=== PATIENT | female | born 1970 | race Caucasian/White ===

== ENCOUNTER 2022-12-31 18:40 | Inpatient (IN) | payer MEDICARE, MEDICAID ==
[~2022-12-31] VITALS: Ht 157.5 cm; Wt 81.8 kg
[2022-12-31] MEDS ORDERED: LORazepam 2 mg/ml vial IV ONE (18:55)
[2022-12-31] MEDS ORDERED: ipratropium 0.5 MG/2.5ML nebule IH ONE (19:05)
[2022-12-31] MEDS ORDERED: albuterol 2.5 MG/3 ML nebule CONTNEB PRN (19:05)
[2022-12-31 19:14] LABS: BASOPHILS # (AUTO) 0.1 X10'3 (0-0.2); BASOPHILS % (AUTO) 0.4 % (0-1); EOSINOPHILS # (AUTO) 0.4 X10'3 (0-0.9); HEMATOCRIT 39.6 % (35.0-45.0); HEMOGLOBIN 12.9 g/dl (12.0-16.0); LYMPHOCYTES # (AUTO) 8.5 X10'3 (1.1-4.8); LYMPHOCYTES % (AUTO) 42.2 % (21-51); MEAN CORPUSCULAR HEMOGLOBIN 27.7 PG (27.0-31.0); MEAN CORPUSCULAR HGB CONC 32.6 g/dL (33.0-36.5); MEAN CORPUSCULAR VOLUME 84.9 FL (78-98); MEAN PLATELET VOLUME 7.3 FL (7.4-10.4); MONOCYTES # (AUTO) 1.3 X10'3 (0-0.9); MONOCYTES % (AUTO) 6.3 % (2-12); NEUTROPHILS # (AUTO) 9.8 X10'3 (1.8-7.7); NEUTROPHILS % (AUTO) 49.1 % (42-75); PLATELET COUNT 365 X10'3 (140-440); RED BLOOD COUNT 4.67 X10'6 (4.20-5.60); RED CELL DISTRIBUTION WIDTH 15.3 % (11.5-14.5); WHITE BLOOD COUNT 20.1 X10'3 (4.5-11.0)
[2022-12-31 19:15] LABS: ALANINE AMINOTRANSFERASE 45 U/L (12-78); ALBUMIN 3.8 G/DL (3.4-5.0); ALKALINE PHOSPHATASE 188 IU/L (46-116); ANION GAP 10 (8-16); ASPARTATE AMINO TRANSFERASE 53 U/L (10-37); BILIRUBIN,TOTAL 0.3 MG/DL (0.1-1.0); BLOOD UREA NITROGEN 12 MG/DL (7-18); BUN/CREATININE RATIO 11.2 (10.0-20.0); CALCIUM 8.8 MG/DL (8.5-10.1); CHLORIDE 99 MMOL/L (99-107); CREATININE 1.07 MG/DL (0.40-0.90); GLUCOSE 216 MG/DL (70-104); POTASSIUM 3.2 MMOL/L (3.5-5.1); SODIUM 136 MMOL/L (135-145); TOTAL CARBON DIOXIDE 26.9 MMOL/L (24-32); TOTAL PROTEIN 7.8 G/DL (6.4-8.2); eGFR 53 ML/MIN
--- NOTE | 2022-12-31 19:25 | NUR ---
Adolfo Mayers home delivery driver. Will pick pt up when she is ready to go home
[2022-12-31] MEDS ORDERED: normal saline 1000ML IV soln IVB ONE (19:35)
[2022-12-31] MEDS ORDERED: methylPREDNISolone sod succ 125mg/2ml vial IV ONE (19:35)
[2022-12-31] MEDS ORDERED: CefTRIAXone 2gm/D5W 50ml BAG 50 ML IV ONE (19:35)
[2022-12-31] MEDS ORDERED: azithromycin/NS 500mg/250ml 250 ML IV ONE (19:35)
[2022-12-31 20:17] LABS: MAGNESIUM 1.8 MG/DL (1.5-2.4)
[2022-12-31 21:52] LABS: APTT 26 SECONDS (22-32); D-DIMER 0.59 MG/L FEU (0-0.50)
[2022-12-31 22:08] LABS: URINE HCG NEGATIVE (NEG)
[2022-12-31 22:27] LABS: CLARITY,URINE CLEAR (Clear); COLOR,URINE STRAW (Yellow); GLUCOSE, URINE 250 mg/dl (Neg); KETONES,URINE NEGATIVE (Neg); LEUKOCYTE ESTERASE ,URINE NEGATIVE (Neg); NITRITES, URINE NEGATIVE (Neg); OCCULT BLOOD,URINE LARGE (Neg); PH,URINE 5.5 (4.8-8.0); PROTEIN,URINE 30 mg/dl (Neg); UROBILINOGEN,URINE 0.2 E.U/dL (0.2-1.0)
[2022-12-31 22:28] LABS: UA COLLECTION TYPE CLN CATCH MIDSTREAM
--- NOTE | 2022-12-31 22:37 | NUR ---
Director of patient's care facility called for an update. Pt is not conserved, but would like to be contacted about any major decisions to ensure patient understands. Pt is hard of hearing, but can read and sign.
[2022-12-31 22:46] LABS: BACTERIA,URINE NONE SEEN /HPF (Neg); HYALINE CASTS 0-3 /LPF (NEGATIVE); SQUAMOUS EPITHELIAL CELL,UR FEW /LPF (FEW); WBC,URINE 0-4 /HPF (0-4)
[2022-12-31] MEDS ORDERED: albuterol 2.5 MG/3 ML nebule NEB PRN (23:25)
[2023-01-01] MEDS ORDERED: CELE-193 PO (00:24)
[2023-01-01] MEDS ORDERED: ISON300T20 PO (00:28)
[2023-01-01] MEDS ORDERED: AMIT-286 PO (00:29)
[2023-01-01] MEDS ORDERED: hydrALAZINE 20mg/ml inj. IV PRN (00:35)
[2023-01-01 01:10] LABS: ABG HCO3 20.6 mmol/L (22.0-26.0); ABG OXYGEN SATURATION 97.2 % (94-97); ABG PO2 (T) 96.6 mmHg (75.0-100.0); FCOHb 0.8 % (0.0-3.9); FMetHb 0.2 % (0.0-1.5); FO2Hb 96.2 % (94-97); PATIENT TEMPERATURE 37.2; TOTAL HEMOGLOBIN 13.3 G/dl (12.0-16.0)
[2023-01-01] MEDS ORDERED: potassium Cl 40MEQ/1/2NS 520ml 520 ML IV PRN (01:30)
[2023-01-01] MEDS ORDERED: acetaminophen 650mg rectal suppository RC PRN (01:30)
[2023-01-01] MEDS ORDERED: morphine 2 MG/ML inj. syringe IV PRN ×2 (01:30)
[2023-01-01] MEDS ORDERED: potassium Cl 20 mEq SR tablet PO PRN (01:30)
[2023-01-01] MEDS ORDERED: bisacodyl 10mg suppository rectal RC PRN (01:30)
[2023-01-01] MEDS ORDERED: magnesium 4gm in 100ml NS 100 ML IV PRN (01:30)
[2023-01-01] MEDS ORDERED: HYDROcodone/acetaminophen 5mg/325mg tablet PO PRN (01:30)
[2023-01-01] MEDS ORDERED: acetaminophen 325mg tablet PO PRN (01:30)
[2023-01-01] MEDS ORDERED: mag hydrox/Alum hydrox/simeth 30ml oral suspension PO PRN (01:30)
[2023-01-01] MEDS ORDERED: diphenhydrAMINE 50 mg/ml inj IV PRN (01:30)
[2023-01-01] MEDS ORDERED: magnesium Cl slow-release 64mg tablet PO PRN (01:30)
[2023-01-01] MEDS ORDERED: magnesium 2GM in 50ml NS 50 ML IV PRN (01:30)
[2023-01-01] MEDS ORDERED: diphenhydrAMINE 25mg capsule PO PRN (01:30)
[2023-01-01] MEDS ORDERED: HYDROcodone/acetaminophen 10/325mg tab PO PRN (01:30)
[2023-01-01] MEDS ORDERED: ondansetron/PF 4mg/2ml inj IV PRN (01:30)
[2023-01-01] MEDS ORDERED: magnesium hydroxide 30ml (MOM) UD suspension PO PRN (01:30)
[2023-01-01] MEDS ORDERED: ondansetron 4mg rapidly disintigrating tab PO PRN (01:30)
[2023-01-01] MEDS ORDERED: heparin 10,000 units/1 ML INJ IV ONE (01:40)
[2023-01-01] MEDS: normal saline 1000ml 1,000 ML IV SCH (01:43)
[2023-01-01] MEDS ORDERED: insulin Lispro (HumaLOG) vial - multi-dose SQ SCH (01:45)
[2023-01-01] MEDS ORDERED: dextrose 50%-water 50ml dispensing syringe IV PRN ×2 (01:45)
[2023-01-01] MEDS ORDERED: MESSAGE TO PHARMACY PO ONE (01:45)
[2023-01-01] MEDS ORDERED: DEXTROSE 15 GM of carb/4 tabs (each vial/BOTTLE has 4 tablets) PO PRN ×2 (01:45)
[2023-01-01] MEDS ORDERED: glucagon, human recombinant 1mg kit SUBCUT PRN (01:45)
[2023-01-01] MEDS ORDERED: aspirin 81mg tab.chew PO ONE (01:45)
--- NOTE | 2023-01-01 01:51 | NUR ---
PER DR SANCHEZ OK TO HOLD CARDIZEM DRIP AT THIS TIME. INSTEAD GIVE 20MG IV BOLUS OF CARDIZEM, RECHECK HR IN 30 MINUTES, THEN GIVE SECOND BOLUS OF CARDIZEM 20 MG IV. IF STILL NO IMPROVEMENT 30 MINUTES LATER START DRIP.
[2023-01-01] MEDS ORDERED: diltiazem 5mg/ml 5ml inj. IV ONE ×2 (01:55→05:55)
[2023-01-01] MEDS ORDERED: diltiazem-NS 100mg/100ml 100 ML IV SCH (02:15)
[2023-01-01] MEDS: heparin 25,000 UNIT/250ml bag 250 ML IV PRN (02:27)
[2023-01-01 04:00] VITALS: BP 152/88
--- NOTE | 2023-01-01 04:00 | NUR ---
Pt arrived to room 3020 via gurney, observed to be SOB w/an audible expiratory tightness. Lungs are decreased and clear to auscultation, O2 on at 3L/NC, RT in to assess. HR 105/min. Pt. oriented to bed, room, surroundings, and POC, appears anxious. Heparin IV infusing per cardiac protocol. Assisted to BR f/void, tolerating PO fluids well.
--- NOTE | 2023-01-01 05:45 | NUR ---
notified of HR cont. in low 100s, Cardizem 15mg ord. and admin IV push. Drop in HR noted to 97/min., O2 remains on at 3L/NC.
[2023-01-01 06:00] VITALS: BP 128/84
--- NOTE | 2023-01-01 07:00 | NUR ---
Problems reprioritized. Patient report given, questions answered & plan of care reviewed with Jessica JOSHUA.
--- NOTE | 2023-01-01 07:10 | NUR ---
Patient in room PCU 3020. I have received report from TRES MARTINEZ, and had the opportunity to ask questions and assume patient care.
[2023-01-01 07:15] LABS: BASOPHILS % (AUTO) 0.2 % (0-1); EOSINOPHILS % (AUTO) 0 % (0-6); HEMATOCRIT 36.8 % (35.0-45.0); LYMPHOCYTES # (AUTO) 0.7 X10'3 (1.1-4.8); LYMPHOCYTES % (AUTO) 4.9 % (21-51); MEAN CORPUSCULAR HEMOGLOBIN 27.3 PG (27.0-31.0); MEAN CORPUSCULAR HGB CONC 32.6 g/dL (33.0-36.5); MEAN CORPUSCULAR VOLUME 83.7 FL (78-98); MEAN PLATELET VOLUME 7.5 FL (7.4-10.4); MONOCYTES # (AUTO) 0.2 X10'3 (0-0.9); MONOCYTES % (AUTO) 1.2 % (2-12); NEUTROPHILS # (AUTO) 13.5 X10'3 (1.8-7.7); NEUTROPHILS % (AUTO) 93.7 % (42-75); PLATELET COUNT 279 X10'3 (140-440); RED CELL DISTRIBUTION WIDTH 14.9 % (11.5-14.5); WHITE BLOOD COUNT 14.4 X10'3 (4.5-11.0)
[2023-01-01 07:20] LABS: APTT 93 SECONDS (22-32)
[2023-01-01 07:26] LABS: MAGNESIUM 1.7 MG/DL (1.5-2.4); PHOSPHORUS 3.2 MG/DL (2.3-4.5); POTASSIUM 3.5 MMOL/L (3.5-5.1)
--- NOTE | 2023-01-01 07:31 | NUR ---
PAGE SENT PAGER ID: [phone] MESSAGE: [id number], MIKE HUGO, CRITICAL LAB - PTT 93. HEPARIN HELD FOR 120 MINUTES. THANK YOU, ASHLEY Carrillo9
[2023-01-01 07:38] LABS: HEMOGLOBIN A1C 6.1 % (4.5-6.2)
[2023-01-01] MEDS: K and/or MAG REPLACEMENT MC SCH ×2 (08:00→20:36)
[2023-01-01] MEDS: methylPREDNISolone sod succ 125mg/2ml vial IV SCH ×2 (09:12→15:41)
[2023-01-01] MEDS: aspirin 81mg, enteric-coated 1 TAB TABLET.DR PO SCH (09:13)
[2023-01-01] MEDS: docusate sod 100mg capsule PO SCH ×2 (09:13→20:34)
[2023-01-01] MEDS: pantoprazole 40mg Tablet.DR PO SCH (09:14)
[2023-01-01] MEDS: lisinopril 10 MG tablet PO SCH (09:14)
[2023-01-01] MEDS: atorvastatin 20mg tablet PO SCH (09:14)
[2023-01-01 12:11] VITALS: BP 155/98
[2023-01-01 15:38] VITALS: BP 145/77
[2023-01-01] MEDS: heparin 10,000 units/1 ML INJ IV PRN (17:33)
--- NOTE | 2023-01-01 18:58 | NUR ---
Problems reprioritized. Patient report given, questions answered & plan of care reviewed with TRES MANZANO.
[2023-01-01] MEDS: amitriptyline 10mg tablet PO SCH (20:35)
[2023-01-01] MEDS: potassium Cl 20 mEq SR tablet PO PRN (20:35)
[2023-01-01] MEDS: CefTRIAXone/D5W-Rocephin 1gm 50 ML IV SCH (20:49)
[2023-01-01 20:53] VITALS: BP 152/82
[2023-01-01] MEDS ORDERED: temazepam 15mg capsule PO PRN (21:00)
[2023-01-01] MEDS: azithromycin/NS 500mg/250ml 250 ML IV SCH (22:12)
[2023-01-02] MEDS: methylPREDNISolone sod succ 125mg/2ml vial IV SCH (00:17)
[2023-01-02] MEDS: potassium Cl 20 mEq SR tablet PO PRN (00:35)
[2023-01-02 02:00] VITALS: BP 139/87
[2023-01-02 06:00] VITALS: BP 136/84
[2023-01-02 06:12] LABS: ALANINE AMINOTRANSFERASE 43 U/L (12-78); ALBUMIN 3.3 G/DL (3.4-5.0); ALKALINE PHOSPHATASE 128 IU/L (46-116); ANION GAP 10 (8-16); ASPARTATE AMINO TRANSFERASE 30 U/L (10-37); BILIRUBIN,TOTAL 0.3 MG/DL (0.1-1.0); BLOOD UREA NITROGEN 19 MG/DL (7-18); BUN/CREATININE RATIO 20.7 (10.0-20.0); CALCIUM 8.7 MG/DL (8.5-10.1); CHLORIDE 107 MMOL/L (99-107); CHOL/HDL RATIO 2.2 (0.00-4.99); CHOLESTEROL 155 MG/DL (0-200); CREATININE 0.92 MG/DL (0.40-0.90); GLUCOSE 174 MG/DL (70-104); HDL CHOLESTEROL 69 MG/DL (35-60); LDL CHOLESTEROL 78 MG/DL (50-100); SODIUM 142 MMOL/L (135-145); TOTAL CARBON DIOXIDE 25.5 MMOL/L (24-32); TOTAL PROTEIN 6.7 G/DL (6.4-8.2); TRIGLYCERIDES 37 MG/DL (20-135); eGFR 64 ML/MIN
[2023-01-02 06:18] LABS: BASOPHILS % (AUTO) 0.2 % (0-1); EOSINOPHILS % (AUTO) 0 % (0-6); HEMATOCRIT 36.7 % (35.0-45.0); HEMOGLOBIN 11.8 g/dl (12.0-16.0); LYMPHOCYTES # (AUTO) 1.3 X10'3 (1.1-4.8); LYMPHOCYTES % (AUTO) 5.1 % (21-51); MEAN CORPUSCULAR HEMOGLOBIN 26.9 PG (27.0-31.0); MEAN CORPUSCULAR HGB CONC 32.2 g/dL (33.0-36.5); MEAN CORPUSCULAR VOLUME 83.7 FL (78-98); MEAN PLATELET VOLUME 7.7 FL (7.4-10.4); MONOCYTES # (AUTO) 0.5 X10'3 (0-0.9); NEUTROPHILS % (AUTO) 92.7 % (42-75); PLATELET COUNT 309 X10'3 (140-440); RED BLOOD COUNT 4.39 X10'6 (4.20-5.60); RED CELL DISTRIBUTION WIDTH 15.5 % (11.5-14.5)
[2023-01-02] MEDS: heparin 10,000 units/1 ML INJ IV PRN (06:30)
[2023-01-02 06:39] LABS: WHITE BLOOD COUNT 25.8 X10'3 (4.5-11.0)
--- NOTE | 2023-01-02 06:41 | NUR ---
Patient in room PCU 3020. I have received report from TRES MNAZANO, and had the opportunity to ask questions and assume patient care.
--- NOTE | 2023-01-02 06:42 | NUR ---
PAGE SENT PAGER ID: [phone] MESSAGE: [id number], MIKE HUGO, CRITICAL LAB - WBC 25.8. THANK YOU, ASHLEY [id number]
[2023-01-02 07:18] LABS: PLATELET ESTIMATE NORMAL; TOTAL CELLS COUNTED 100
[2023-01-02] MEDS: K and/or MAG REPLACEMENT MC SCH ×2 (08:00→20:00)
[2023-01-02] MEDS: pantoprazole 40mg Tablet.DR PO SCH (09:16)
[2023-01-02] MEDS: atorvastatin 20mg tablet PO SCH (09:17)
[2023-01-02] MEDS: aspirin 81mg, enteric-coated 1 TAB TABLET.DR PO SCH (09:17)
[2023-01-02] MEDS: docusate sod 100mg capsule PO SCH ×2 (09:17→20:24)
[2023-01-02] MEDS: lisinopril 10 MG tablet PO SCH (09:18)
[2023-01-02] MEDS: methylPREDNISolone sod succ/PF 40mg inj. IV SCH ×2 (09:19→19:52)
[2023-01-02] MEDS: heparin 25,000 UNIT/250ml bag 250 ML IV PRN (09:36)
[2023-01-02 11:00] VITALS: BP 168/84
--- NOTE | 2023-01-02 13:50 | NUR ---
PAGE SENT PAGER ID: [phone] MESSAGE: [id number] MIKE HUGO, CRITICAL LAB, PTT 112. HEPARIN GTT WAS STOPPED. THANK YOU, ASHLEY [phone]
[2023-01-02 14:50] VITALS: BP 151/97
[2023-01-02] MEDS: diltiazem 30mg tablet PO SCH ×2 (14:52→20:24)
--- NOTE | 2023-01-02 15:20 | NUR ---
PAGE SENT PAGER ID: [phone] MESSAGE: [id number], CAN WE ADVANCE PT'S DIET? NO C/O ABD PAIN, NAUSEA OR VOMITTING. THANK YOU, ASHLEY Perea [phone]
--- NOTE | 2023-01-02 17:00 | NUR ---
PAGE SENT PAGER ID: [phone] MESSAGE: [id number], MIKE HUGO, CAN WE ADVANCE PT'S DIET TO CC? THANK YOU, JESSICA [phone] Addendum: 01/02/23 at 1702 by Jessica Ball RN RECEIVED ORDER TO ADVANCE DIET TO CC.
[2023-01-02] MEDS ORDERED: LORazepam 2 mg/ml vial ONE (17:24)
[2023-01-02 18:00] VITALS: BP 113/66
--- NOTE | 2023-01-02 18:24 | NUR ---
Problems reprioritized. Patient report given, questions answered & plan of care reviewed with HAVEN DIEGO.
[2023-01-02] MEDS: CefTRIAXone/D5W-Rocephin 1gm 50 ML IV SCH (19:41)
[2023-01-02] MEDS: amitriptyline 10mg tablet PO SCH (20:24)
[2023-01-02] MEDS: apixaban 5mg tablet PO SCH (20:24)
[2023-01-02] MEDS: ipratropium/albuterol 3ml nebule NEB PRN (20:46)
[2023-01-02 22:00] VITALS: BP 131/82
[2023-01-02] MEDS: azithromycin/NS 500mg/250ml 250 ML IV SCH (23:36)
[2023-01-03 01:30] VITALS: BP 138/67
[2023-01-03] MEDS: normal saline 1000ml 1,000 ML IV SCH (01:30)
[2023-01-03] MEDS: diltiazem 30mg tablet PO SCH ×4 (01:47→20:06)
[2023-01-03 06:00] VITALS: BP 137/71
--- NOTE | 2023-01-03 06:52 | NUR ---
Patient in room PCU 3020. I have received report from HAVEN DIEGO, and had the opportunity to ask questions and assume patient care.PT RESTING COMFORTABLY, NO S/S OF DISTRESS. WILL CONTINUE TO MONITOR.
[2023-01-03 07:24] LABS: BASOPHILS % (AUTO) 0.1 % (0-1); EOSINOPHILS % (AUTO) 0 % (0-6); HEMATOCRIT 34.7 % (35.0-45.0); LYMPHOCYTES # (AUTO) 1.1 X10'3 (1.1-4.8); LYMPHOCYTES % (AUTO) 6.2 % (21-51); MEAN CORPUSCULAR HGB CONC 31.7 g/dL (33.0-36.5); MEAN CORPUSCULAR VOLUME 85.2 FL (78-98); MEAN PLATELET VOLUME 7.5 FL (7.4-10.4); MONOCYTES # (AUTO) 0.5 X10'3 (0-0.9); MONOCYTES % (AUTO) 2.9 % (2-12); NEUTROPHILS # (AUTO) 15.9 X10'3 (1.8-7.7); NEUTROPHILS % (AUTO) 90.8 % (42-75); PLATELET COUNT 260 X10'3 (140-440); RED BLOOD COUNT 4.08 X10'6 (4.20-5.60); RED CELL DISTRIBUTION WIDTH 15.9 % (11.5-14.5); WHITE BLOOD COUNT 17.5 X10'3 (4.5-11.0)
[2023-01-03] MEDS: K and/or MAG REPLACEMENT MC SCH ×2 (08:00→20:00)
[2023-01-03 08:04] LABS: ALANINE AMINOTRANSFERASE 38 U/L (12-78); ALBUMIN 3.1 G/DL (3.4-5.0); ALKALINE PHOSPHATASE 103 IU/L (46-116); ANION GAP 9 (8-16); ASPARTATE AMINO TRANSFERASE 30 U/L (10-37); BILIRUBIN,TOTAL 0.2 MG/DL (0.1-1.0); BLOOD UREA NITROGEN 29 MG/DL (7-18); BUN/CREATININE RATIO 26.6 (10.0-20.0); CALCIUM 8.4 MG/DL (8.5-10.1); CHLORIDE 108 MMOL/L (99-107); CREATININE 1.09 MG/DL (0.40-0.90); GLUCOSE 159 MG/DL (70-104); POTASSIUM 4.6 MMOL/L (3.5-5.1); SODIUM 143 MMOL/L (135-145); TOTAL CARBON DIOXIDE 26.3 MMOL/L (24-32); TOTAL PROTEIN 6.1 G/DL (6.4-8.2); eGFR 52 ML/MIN
[2023-01-03] MEDS: methylPREDNISolone sod succ/PF 40mg inj. IV SCH ×2 (08:21→20:31)
[2023-01-03] MEDS: aspirin 81mg, enteric-coated 1 TAB TABLET.DR PO SCH (08:21)
[2023-01-03] MEDS: atorvastatin 20mg tablet PO SCH (08:21)
[2023-01-03] MEDS: lisinopril 10 MG tablet PO SCH (08:21)
[2023-01-03] MEDS: apixaban 5mg tablet PO SCH ×2 (08:21→20:07)
[2023-01-03] MEDS: pantoprazole 40mg Tablet.DR PO SCH (08:21)
[2023-01-03] MEDS: docusate sod 100mg capsule PO SCH ×2 (08:21→20:06)
[2023-01-03 11:00] VITALS: BP 138/82
[2023-01-03 14:02] VITALS: BP 128/87
[2023-01-03 15:00] VITALS: BP 142/96
[2023-01-03 18:00] VITALS: BP 143/98
--- NOTE | 2023-01-03 18:23 | NUR ---
Problems reprioritized. Patient report given, questions answered & plan of care reviewed with HAVEN DIEGO.
[2023-01-03] MEDS: amitriptyline 10mg tablet PO SCH (20:06)
[2023-01-03] MEDS: CefTRIAXone/D5W-Rocephin 1gm 50 ML IV SCH (20:29)
[2023-01-03] MEDS: azithromycin/NS 500mg/250ml 250 ML IV SCH (21:00)
[2023-01-04 01:40] VITALS: BP 133/84
[2023-01-04] MEDS: diltiazem 30mg tablet PO SCH ×2 (01:46→09:01)
--- NOTE | 2023-01-04 06:45 | NUR ---
Patient in room PCU 3020A . I have received report from Luciana JOSHUA and had the opportunity to ask questions and assume patient care.
--- NOTE | 2023-01-04 06:45 | NUR ---
Patient in room PCU 3010. I have received report from Luciana JOSHUA and had the opportunity to ask questions and assume patient care. Addendum: 01/04/23 at 1348 by Vanessa Barrow LVN, LVN wrong room
[2023-01-04 07:05] LABS: BASOPHILS % (AUTO) 0.1 % (0-1); EOSINOPHILS % (AUTO) 0 % (0-6); HEMATOCRIT 39.7 % (35.0-45.0); HEMOGLOBIN 12.7 g/dl (12.0-16.0); LYMPHOCYTES # (AUTO) 1.4 X10'3 (1.1-4.8); LYMPHOCYTES % (AUTO) 9.7 % (21-51); MEAN CORPUSCULAR HEMOGLOBIN 27.1 PG (27.0-31.0); MEAN CORPUSCULAR VOLUME 84.5 FL (78-98); MEAN PLATELET VOLUME 7.7 FL (7.4-10.4); MONOCYTES # (AUTO) 0.4 X10'3 (0-0.9); MONOCYTES % (AUTO) 2.8 % (2-12); NEUTROPHILS # (AUTO) 12.5 X10'3 (1.8-7.7); NEUTROPHILS % (AUTO) 87.4 % (42-75); PLATELET COUNT 254 X10'3 (140-440); RED CELL DISTRIBUTION WIDTH 15.8 % (11.5-14.5); WHITE BLOOD COUNT 14.3 X10'3 (4.5-11.0)
[2023-01-04] MEDS: pantoprazole 40mg Tablet.DR PO SCH (07:30)
[2023-01-04 07:53] LABS: ALANINE AMINOTRANSFERASE 47 U/L (12-78); ALBUMIN 3.7 G/DL (3.4-5.0); ALKALINE PHOSPHATASE 119 IU/L (46-116); ANION GAP 10 (8-16); ASPARTATE AMINO TRANSFERASE 28 U/L (10-37); BILIRUBIN,TOTAL 0.3 MG/DL (0.1-1.0); BLOOD UREA NITROGEN 31 MG/DL (7-18); BUN/CREATININE RATIO 31.3 (10.0-20.0); CALCIUM 9.1 MG/DL (8.5-10.1); CHLORIDE 105 MMOL/L (99-107); CREATININE 0.99 MG/DL (0.40-0.90); GLUCOSE 153 MG/DL (70-104); POTASSIUM 4.5 MMOL/L (3.5-5.1); SODIUM 141 MMOL/L (135-145); TOTAL CARBON DIOXIDE 26.1 MMOL/L (24-32); TOTAL PROTEIN 7.4 G/DL (6.4-8.2); eGFR 58 ML/MIN
[2023-01-04] MEDS: ipratropium/albuterol 3ml nebule NEB PRN (07:57)
[2023-01-04] MEDS: K and/or MAG REPLACEMENT MC SCH (08:00)
[2023-01-04] MEDS: methylPREDNISolone sod succ/PF 40mg inj. IV SCH (08:00)
[2023-01-04 08:13] VITALS: BP 149/61
[2023-01-04] MEDS: atorvastatin 20mg tablet PO SCH (09:01)
[2023-01-04] MEDS: docusate sod 100mg capsule PO SCH (09:01)
[2023-01-04] MEDS: aspirin 81mg, enteric-coated 1 TAB TABLET.DR PO SCH (09:01)
[2023-01-04] MEDS: apixaban 5mg tablet PO SCH (09:01)
[2023-01-04 09:02] VITALS: BP_SYST 149
[2023-01-04] MEDS: lisinopril 10 MG tablet PO SCH (09:02)
[2023-01-04] MEDS ORDERED: APIX5TAB3 PO (12:05)
[2023-01-04] MEDS ORDERED: LEVO-65 PO (12:05)
[2023-01-04] MEDS ORDERED: ALBU8HFA PO (12:05)
[2023-01-04] MEDS ORDERED: PRED20TA PO (12:05)
[2023-01-04] MEDS ORDERED: DILT120C95 PO (12:05)
--- NOTE | 2023-01-04 16:11 | NUR ---
patient discharged to home (facility) All instructions given to employee benefits administrator of care Adolfo Mayers. All medications sent over verbally to [facility] pharmacy. Patient accompanied by wheelchair to car. All personal belongings left with patient.
== END 2023-01-04 14:40 | disposition home or self-care (01) | DRG 871 ==
LOC: ER 18:40 → ED HOLD 01-01 01:39 → PCU 3S 01-01 03:31
PROVIDERS: ADMIT Family Medicine; ATTEND Family Medicine
DX: A41.9 Sepsis, unspecified organism (principal); I21.A1 Myocardial infarction type 2; J18.9 Pneumonia, unspecified organism; J96.01 Acute respiratory failure with hypoxia; I16.1 Hypertensive emergency; J44.1 Chronic obstructive pulmonary disease with (acute) exacerbation; N17.9 Acute kidney failure, unspecified; I48.92 Unspecified atrial flutter; J44.0 Chronic obstructive pulmonary disease with (acute) lower respiratory infection; T38.0X5A Adverse effect of glucocorticoids and synthetic analogues, initial encounter; E78.5 Hyperlipidemia, unspecified; I12.9 Hypertensive chronic kidney disease with stage 1 through stage 4 chronic kidney disease, or unspecified chronic kidney disease; R31.9 Hematuria, unspecified; E87.6 Hypokalemia; I48.91 Unspecified atrial fibrillation; N18.9 Chronic kidney disease, unspecified; Z86.15 Personal history of latent tuberculosis infection; Z87.891 Personal history of nicotine dependence; Z79.899 Other long term (current) drug therapy; Y92.89 Other specified places as the place of occurrence of the external cause
CPT/HCPCS: 36415; 36600; 71045; 71250; 80053; 80061; 81001; 81025; 82803; 82948; 83036; 83605; 83735; 83880; 84100; 84132; 84145; 84484; 85007; 85018; 85025; 85379; 85610; 85730; 87040; 87081; 93005; 93306; 94640; 94660; 94760; 99285; A4615; A7015; G0378; J0360; J0456; J0696; J1644; J2060; J2920; J2930; J3490; J7030; J7040